=== PATIENT | female | born 1990 | race Caucasian/White ===

== ENCOUNTER 2019-09-07 01:17 | Emergency (ER) | payer MEDICAID ==
[~2019-09-07] VITALS: Ht 152.4 cm; Wt 116.6 kg
[2019-09-07 01:27] VITALS: Ht 152.4 cm; Wt 116.6 kg
[2019-09-07 02:40] LABS: BASOPHIL % 0.5 % (0-2); PLATELET COUNT 299 x10^3mcL (130-400); RED CELL DISTRIBUTION WIDTH 14.2 % (11.5-14.5)
[2019-09-07 03:06] LABS: CALCIUM 8.9 mg/dL (8.5-10.1); CARBON DIOXIDE 30.4 mmol/L (21-32); CHLORIDE SERUM 100 mmol/L (98-107); CREATININE SERUM 0.7 mg/dL (0.6-1.0); GFR1 > 60 mL/min; GLUCOSE SERUM 105 mg/dL (74-106); POTASSIUM SERUM 4.1 mmol/L (3.5-5.1); SODIUM SERUM 137 mmol/L (136-145)
[2019-09-07 03:11] LABS: ALKALINE PHOSPHATASE 85 U/L (46-116); ALT/SGPT 19 U/L (14-59); AST/SGOT 10 U/L (15-37); BILIRUBIN TOTAL 0.27 mg/dL (0.20-1.00)
[2019-09-07 03:23] LABS: ALBUMIN 2.7 g/dL (3.4-5.0); TOTAL PROTEIN, SERUM 8.7 g/dL (6.4-8.2)
[2019-09-07 06:40] VITALS: BP 118/64
== END 2019-09-07 06:40 | disposition home or self-care (01) ==
LOC: ED 01:17
DX: K80.50 Calculus of bile duct without cholangitis or cholecystitis without obstruction (principal); N39.0 Urinary tract infection, site not specified
CPT/HCPCS: J2270; J2405; J7030; Q0092